=== PATIENT | female | born 1990 ===

== ENCOUNTER 2017-11-23 04:10 | Inpatient (IN) | payer MEDICAID, OTHER ==
[2017-11-23 04:14] VITALS: BMI 19.2
--- NOTE | 2017-11-23 04:29 | ED PDOC ---
Arrival/HPI - General Chief Complaint: Psychiatric Evaluation Time Seen by Provider: 11/23/17 04:14 Historian: Patient, EMS - History of Present Illness Narrative History of Present Illness (Text): 11/23/17 04:25 Yoni Griffin is a 27 year old female, with no significant past medical history, who presents to the Emergency department brought in by EMS for evaluation of depression. Patient states she got upset while arguing with her boyfriend tonight and told him she "was done and wanted to end it." Patient's boyfriend became concerned and notified EMS. Patient denies any suicidal ideation, homicidal ideation, alcohol/substance abuse, fever, chills, chest pain, shortness of breath, nausea, vomiting, headache, dizziness, or any other complaints. Time/Duration: Other (tonight) Symptom Onset: Gradual Symptom Course: Unchanged Activities at Onset: Emotional Upset Context: Home Past Medical History - Provider Review Nursing Documentation Reviewed: Yes - Psychiatric Hx Substance Use: No - Anesthesia Hx Anesthesia: No Family/Social History - Physician Review Nursing Documentation Reviewed: Yes Family/Social History: Unknown Family HX Smoking Status: Never Smoked Hx Alcohol Use: Yes Frequency of alcohol use: Socially Hx Substance Use: No Allergies/Home Meds Allergies/Adverse Reactions: Allergies No Known Allergies Allergy (Verified 11/23/17 04:15) Home Medications: Home Meds Medication Instructions Recorded Confirmed No Known Home Med 11/23/17 11/23/17 Review of Systems - Physician Review All systems were reviewed & negative as marked: Yes - Review of Systems Constitutional: Normal. absent: Fevers Eyes: Normal ENT: Normal Respiratory: Normal. absent: SOB, Cough Cardiovascular: Normal. absent: Chest Pain Gastrointestinal: Normal. absent: Abdominal Pain, Diarrhea, Nausea, Vomiting Genitourinary Female: Normal. absent: Dysuria, Frequency, Hematuria, Urine Output Changes Musculoskeletal: Normal. absent: Back Pain, Neck Pain Skin: Normal Neurological: Normal Endocrine: Normal Hemo/Lymphatic: Normal Psychiatric: Depression. absent: Suicidal Ideation Physical Exam Vital Signs Reviewed: Yes Vital Signs Temp Pulse Resp BP Pulse Ox 11/23/17 04:13 98.1 F 74 18 134/90 99 Temperature: Afebrile Blood Pressure: Normal Pulse: Regular Respiratory Rate: Normal Appearance: Positive for: Well-Appearing, Non-Toxic, Comfortable Pain Distress: None Mental Status: Positive for: Alert and Oriented X 3 - Systems Exam Head: Present: Atraumatic, Normocephalic Pupils: Present: PERRL Extroacular Muscles: Present: EOMI Conjunctiva: Present: Normal Mouth: Present: Moist Mucous Membranes Neck: Present: Normal Range of Motion Respiratory/Chest: Present: Clear to Auscultation, Good Air Exchange. No: Respiratory Distress, Accessory Muscle Use Cardiovascular: Present: Regular Rate and Rhythm, Normal S1, S2. No: Murmurs Abdomen: No: Tenderness, Distention, Peritoneal Signs Back: Present: Normal Inspection Upper Extremity: Present: Normal Inspection. No: Cyanosis, Edema Lower Extremity: Present: Normal Inspection. No: Edema Neurological: Present: GCS=15, CN II-XII Intact, Speech Normal Skin: Present: Warm, Dry, Normal Color. No: Rashes Psychiatric: Present: Alert, Oriented x 3, Normal Insight, Normal Concentration Medical Decision Making ED Course and Treatment: 11/23/17 04:25 Impression: 27 year old female brought in by EMS for depression. 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 Pt to be held in ER until later today for [id number] evaluation with psychiatrist. 11/23/17 07:[address] Goodson, pending agid-fi-iico evaluation with psychiatrist and disposition. - Lab Interpretations Lab Results: 11/23/17 04:20 11/23/17 04:20 Lab Results 11/23/17 04:20: Urine Opiates Screen Negative, Urine Methadone Screen Negative, Ur Barbiturates Screen Negative, Ur Phencyclidine Scrn Negative, Ur Amphetamines Screen Negative, U Benzodiazepines Scrn Negative, U Oth Cocaine Metabols Negative, U Cannabinoids Screen Negative 11/23/17 04:20: WBC 10.3, RBC 4.22, Hgb 13.8, Hct 40.6, MCV 96.2, MCH 32.7, MCHC 34.0, RDW 11.5, Plt Count 221, MPV 8.9 11/23/17 04:20: Alcohol, Quantitative < 10 11/23/17 04:20: Sodium 140, Potassium 3.5 L, Chloride 104, Carbon Dioxide 23, Anion Gap 17, BUN 7, Creatinine 0.6 L, Est GFR ( Amer) > 60, Est GFR (Non -Af Amer) > 60, Random Glucose 108, Calcium 9.5, Total Bilirubin 0.8, AST 31, ALT 12, Alkaline Phosphatase 69, Total Protein 8.2, Albumin 4.6, Globulin 3.6, Albumin/Globulin Ratio 1.3 I have reviewed the lab results: Yes - Scribe Statement The provider has reviewed the documentation as recorded by the Zenaida Dodd Provider Scribe Attestation: All medical record entries made by the Scribe were at my direction and personally dictated by me. I have reviewed the chart and agree that the record accurately reflects my personal performance of the history, physical exam, medical decision making, and the department course for this patient. I have also personally directed, reviewed, and agree with the discharge instructions and disposition. Disposition/Present on Arrival - Present on Arrival Any Indicators Present on Arrival: No History of DVT/PE: No History of Uncontrolled Diabetes: No Urinary Catheter: No History of Decub. Ulcer: No History Surgical Site Infection Following: None - Disposition Have Diagnosis and Disposition been Completed?: No Diagnosis: Adjustment disorder with depressed mood Disposition Time: 07:00 Patient Problems: Current Active Problems Problem Status Onset Adjustment disorder with depressed mood Acute Condition: STABLE Forms: Familiar (Khmer)
[2017-11-23 04:59] LABS: HEMOGLOBIN 13.8 g/dL (12.0-16.0); MEAN CELL VOLUME 96.2 fl (80.0-105.0); MEAN CORPUSCULAR HEMOGLOBIN 32.7 pg (25.0-35.0); MEAN PLATELET VOLUME 8.9 fl (7.0-11.0); RBC 4.22 10^6/uL (3.5-6.1); RED CELL DISTRIBUTION WIDTH 11.5 % (11.5-14.5); WHITE BLOOD COUNT 10.3 10^3/ul (4.5-11.0)
[2017-11-23 05:02] LABS: ALB/GLOB RATIO 1.3 (1.1-1.8); ALBUMIN 4.6 g/dL (3.0-4.8); ALT/SGPT 12 U/L (7-56); AST/SGOT 31 U/L (14-36); BLOOD UREA NITROGEN 7 mg/dL (7-21); CALCIUM 9.5 mg/dL (8.4-10.5); GFR AFRICAN-AMERICAN > 60; GFR NON-AFRICAN AMERICAN > 60
[2017-11-23 07:12] LABS: BARBITURATES, UR NEGATIVE (NEGATIVE); BENZODIAZEPINES, UR NEGATIVE (NEGATIVE); OPIATES, UR NEGATIVE (NEGATIVE); PHENCYCLIDINE, UR NEGATIVE (NEGATIVE)
--- NOTE | 2017-11-23 08:05 | ED PDOC ---
Physical Exam Vital Signs Reviewed: Yes Vital Signs Temp Pulse Resp BP Pulse Ox 11/23/17 04:13 98.1 F 74 18 134/90 99 Temperature: Afebrile Blood Pressure: Normal Pulse: Regular Respiratory Rate: Normal Medical Decision Making ED Course and Treatment: 11/23/17 08:01 Patient endorsed to me by Dr. Dumont, pending psychiatrist evaluation. Case discussed with Dr. Rodrigues, states patient will be admitted under Dr. Sandy Ragsdale I have discussed the plan with the patient, who expresses understanding. - Lab Interpretations Lab Results: 11/23/17 04:20 11/23/17 04:20 Lab Results 11/23/17 04:20: Urine Opiates Screen Negative, Urine Methadone Screen Negative, Ur Barbiturates Screen Negative, Ur Phencyclidine Scrn Negative, Ur Amphetamines Screen Negative, U Benzodiazepines Scrn Negative, U Oth Cocaine Metabols Negative, U Cannabinoids Screen Negative 11/23/17 04:20: WBC 10.3, RBC 4.22, Hgb 13.8, Hct 40.6, MCV 96.2, MCH 32.7, MCHC 34.0, RDW 11.5, Plt Count 221, MPV 8.9 11/23/17 04:20: Alcohol, Quantitative < 10 11/23/17 04:20: Sodium 140, Potassium 3.5 L, Chloride 104, Carbon Dioxide 23, Anion Gap 17, BUN 7, Creatinine 0.6 L, Est GFR ( Amer) > 60, Est GFR (Non -Af Amer) > 60, Random Glucose 108, Calcium 9.5, Total Bilirubin 0.8, AST 31, ALT 12, Alkaline Phosphatase 69, Total Protein 8.2, Albumin 4.6, Globulin 3.6, Albumin/Globulin Ratio 1.3 - Scribe Statement The provider has reviewed the documentation as recorded by the Scribmanny Rolon Provider Scribe Attestation: All medical record entries made by the Scribe were at my direction and personally dictated by me. I have reviewed the chart and agree that the record accurately reflects my personal performance of the history, physical exam, medical decision making, and the department course for this patient. I have also personally directed, reviewed, and agree with the discharge instructions and disposition. Disposition/Present on Arrival - Present on Arrival Any Indicators Present on Arrival: No History of DVT/PE: No History of Uncontrolled Diabetes: No Urinary Catheter: No History of Decub. Ulcer: No History Surgical Site Infection Following: None - Disposition Have Diagnosis and Disposition been Completed?: Yes Diagnosis: Adjustment disorder with depressed mood Disposition: HOSPITALIZED Disposition Time: 08:01 Condition: STABLE
[2017-11-23 09:58] VITALS: O2SAT 100
--- NOTE | 2017-11-23 10:53 | CON ---
DATE: HISTORY OF PRESENT ILLNESS: The patient is a single domicile 27-year-old [place]ym[place] female with no reported form of psychiatric history, no history of suicide attempts for outpatient treatment or inpatient psychiatric admissions, who presented to the emergency department after she was brought in by EMS, status post her boyfriend calling the police because the patient indicated that she was "done and wanted to end it". Psychiatry followed up with the patient for a [id number] interview in the ER to determine proper disposition. I met with the patient at bedside and the patient is generally co-operative and well oriented to month, year, location and circumstances. The patient is very soft spoken, affect is constricted and thought process is coherent and generally goal-directed. The patient is not overtly communicative during the course of our conversation and needs prompting by this provider for more elaboration, but in general, what I determined was that the patient came over to the [facility] from [facility] about 10 years ago, has been living in [place] up until 2 weeks ago. She moved to [place] and currently lives with her best friend Marilin. She is in a 6-month relationship with her boyfriend named Tiffanie. They have had increased friction since her move to [place] and generally had been arguing every other day. Apparently, the patient was face timing with Tiffanie on the day of her presentation and they were arguing about the fact that she wants more attention from him and apparently, the phone line got cut off during the course of the conversation and their argument continued via texts. Her boyfriend Tiffanie had actually broken up with the patient via text indicating that she was "too much" for him and that he had made plans to see another female. Tiffanie also screen shot some conversations that he had with this other female to show the patient how serious he was. The patient indicated that she felt very betrayed and depressed and extremely upset about this. Tiffanie had also indicated that he was going to block her on everything including Facebook and other social media sites. However, they do share "notes" together on their phones, so he had access to the notes velia in which she wrote "she was done". The patient did not indicate that she had expressed that she want to end it although ER notes did have that reports. The patient admits that she had thoughts of harming herself, but she does not think she has the courage and indicates that she does not think she could. She has been depressed and she generally feels as unpredictable and easily overwhelmed. She is not hallucinating. She denies hallucinations. This is not in her history. The patient does admit later on that she has had suicidal thoughts in the past when she was a teenager. 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 The patient had been crying outside the apartment and sitting by the stairs when the police arrived and eventually took her to the hospital. At this time, patient is agreeable for voluntary hospitalization for observation to ensure that she is truly safe until she has emotionally dealt with this major stressor. This recommendation was made because the patient relatively has dealt with multiple major life changes including unemployment at this time, major move from [place] to [place] in the last 2 weeks and break up with her boyfriend of 6 months, Tiffanie. Labs and vital signs were reviewed by this provider. PSYCHIATRIC HISTORY: Please note, the patient denies having any psychiatric history though reports having suicidal thoughts about 10 years ago when she was a teenager. Denies any history of suicide, outpatient treatment, inpatient hospitalizations or medication trials. SOCIAL HISTORY: The patient was born and raised in [facility] and she graduated high school there. She moved to [facility] approximately 10 years ago and has been living in [place] up until 2 weeks ago in which she moved to [place] and lives with her best friend, Marilin. She is currently unemployed. She does not have any children. She denies having any drug or alcohol issues. She has been in a relationship with her boyfriend of 6 months, Tiffanie. IMPRESSION: Depression, not otherwise specified, rule out borderline personality disorder. Rule out adjustment disorder with mixed depression and anxiety. Rule out major depressive disorder. RECOMMENDATIONS: The patient is agreeable to voluntary admission at this time for observation. Ravi Ramirez MD [facility] # [id number]
--- NOTE | 2017-11-23 11:12 | PCM.BM ---
<Egdardo Lobato - Last Filed: 11/23/17 11:11> Treatment Plan Problems - Problems identified on initial assessmt Hopelessness Date Initiated: 11/23/17 Time Initiated: 11:11 Assessment reference: NA Status: Active Priority: 1 Ineffective Coping Date Initiated: 11/23/17 Time Initiated: 11:11 Status: Active Priority: 2 Treatment assets and liabiliti Patient Assests: cooperative, educated, insightful, self-reliant, ADL independent, physically healthy, negotiates basic needs, cognitively intact Patient Liabilities: financial problems, poor support system, relationship conflicts - Milieu Protocol Maintain good personal hygiene: daily Encourage regular showers, daily Remind patient to perform daily oral care, daily Assist patient to perform ADL's Conduct patient checks and document Observation sheet: Q15 minutes Maintain personal safety: every shift Educate patient to report safety concerns to staff, every shift Monitor environment for contraband/sharps Medication safety: Monitor for expected outcome, potential side effects: every shift, Assess barriers to learning: every shift, Assess readiness for medication education: every shift Discharge/Continuing Care - Education Needs Education Needs: Patient Medication, Patient Coping Skills, Patient Aftercare Safety Plan - Discharge Discharge Criteria: Tolerates medication w/o severe side effects, Normal sleep pattern, Reduction of target symptoms Discharge to:: Home <Sandy Ragsdale - Last Filed: 11/24/17 17:23> - Diagnosis (1) MDD (major depressive disorder) Status: Acute Interventions: 11/24/17 17:23 Psychoeducation Psychopharmacology/adjustment of medications as needed/ monitoring possible side effects Evaluate pt on daily basis Compliance with medications and follow up appointments Suicide and homicide risk assessment and prevention Relapse prevention Reduction of symptoms Improve functional status Family involvement
[2017-11-23] MEDS ORDERED: Alum-Mag Hydrox-Simethicone Susp (30 mL) PO PRN (11:14)
[2017-11-23] MEDS ORDERED: Magnesium Hydroxide Susp 30 ml UD PO PRN (11:14)
[2017-11-24 07:39] LABS: GLUCOSE,FASTING 79 mg/dL (65-110); HDL CHOLESTEROL 59 mg/dL (29-60)
[2017-11-24 07:51] LABS: LDL CHOLESTEROL 52 mg/dL (0-129)
[2017-11-24 07:59] LABS: FREE T4 1.12 ng/dL (0.78-2.19)
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
[2017-11-25 07:10] VITALS: BP 98/46; PULSE 61; RESP 20; TEMP 98.2
[2017-11-25] MEDS ORDERED: Potassium Chloride 20 mEq ER Tab PO STA (07:12)
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
== END 2017-11-25 11:36 | disposition left against medical advice (07) | DRG 881 ==
LOC: ED 04:10 → ERH 09:10 → PSYC 10:44
PROVIDERS: ADMIT Psychiatry & Neurology Psychiatry; ATTEND Psychiatry & Neurology Psychiatry
DX: F32.9 Major depressive disorder, single episode, unspecified (principal); Z91.410 Personal history of adult physical and sexual abuse